=== PATIENT | female | born 1975 | race Two or more races ===

== ENCOUNTER 2016-10-04 15:01 | Emergency (ER) | payer MEDICAID ==
[~2016-10-04] VITALS: Ht 152.4 cm; Wt 72.6 kg
[~2016-10-04 15:01] MED LIST: BUSP10TA3 PO; SITA1TAB2 PO
[2016-10-04 15:18] VITALS: BP 135/82
== END 2016-10-04 16:24 | disposition home or self-care (01) ==
LOC: ER 15:03
DX: J01.90 Acute sinusitis, unspecified (principal); J30.2 Other seasonal allergic rhinitis; I10 Essential (primary) hypertension; E11.9 Type 2 diabetes mellitus without complications
CPT/HCPCS: 99283; A4606; Z7610

== ENCOUNTER 2017-04-05 09:37 | Emergency (ER) | payer MEDICAID ==
[~2017-04-05] VITALS: Ht 152.4 cm; Wt 81.6 kg
--- NOTE | 2017-04-05 10:21 | NUR ---
PT REC'D TO ER C/O RIDER FOR 2 DAYS HAS MEDS BUT HASNT WORKED AWAITING EVALUATION BY ER PROVIDER.
[2017-04-05] MEDS ORDERED: OXYMETAZOLINE HCL NASAL SPRAY 30 ML BOTTLE NS ONE ×2 (10:54→11:00)
[2017-04-05] MEDS ORDERED: METOCLOPRAMIDE HCL 10 MG/2 ML VIAL ONE (10:54)
[2017-04-05] MEDS ORDERED: KETOROLAC TROMETHAMINE INJ 30 MG/ML VIAL ONE (10:55)
[2017-04-05] MEDS ORDERED: METOCLOPRAMIDE HCL 10 MG/2 ML VIAL IM ONE (11:00)
[2017-04-05] MEDS ORDERED: KETOROLAC TROMETHAMINE INJ 60 MG/2 ML VIAL IM ONE (11:00)
--- NOTE | 2017-04-05 11:00 | NUR ---
PT GIVEN MEDS PER MD ORDER VSS
--- NOTE | 2017-04-05 11:17 | NUR ---
PT TOLERATED MEDS FEELING BETTER PT. VERBALIZED UNDERSTANDING OF AFTERCARE INSTRUCTIONS.Patient discharged to home in stable condition. Written and verbal after care instructions given. Patient verbalizes understanding of instruction.
[2017-04-05 11:19] VITALS: BP 122/86
== END 2017-04-05 11:20 | disposition home or self-care (01) ==
LOC: ER 09:39
DX: G43.909 Migraine, unspecified, not intractable, without status migrainosus (principal); R09.81 Nasal congestion; E11.9 Type 2 diabetes mellitus without complications; H53.149 Visual discomfort, unspecified
CPT/HCPCS: 96372 ×2; 99284; A4606; J1885; J2765; Z7610

== ENCOUNTER 2018-08-04 11:35 | Emergency (ER) | payer MEDICAID ==
[~2018-08-04] VITALS: Ht 149.9 cm; Wt 68.0 kg
[2018-08-04 12:11] LABS: BASOPHILS # (AUTO) 0.1 /CMM (0.0-0.2); BASOPHILS % (AUTO) 0.9 % (0.0-2.0); HEMATOCRIT 39 % (33-45); HEMOGLOBIN 12.8 g/dL (11.5-14.8); LYMPHOCYTES # (AUTO) 1.4 /CMM (0.8-4.8); LYMPHOCYTES % (AUTO) 23.5 % (20.0-44.0); MEAN CORPUSCULAR HGB CONC 33 g/dl (31.0-36.0); MEAN CORPUSCULAR VOLUME 76 fL (82-100); MONOCYTES # (AUTO) 0.4 /CMM (0.1-1.30); MONOCYTES % (AUTO) 7.4 % (2.0-12.0); NEUTROPHILS # (AUTO) 3.8 /CMM (1.8-8.9); NEUTROPHILS % (AUTO) 64.2 % (43.0-81.0); PLATELET COUNT (AUTO) 214 /CMM (150-450); RED BLOOD CELL COUNT(AUTO) 5.08 MIL/uL (4.0-5.2); WHITE BLOOD COUNT (AUTO) 5.9 K/uL (4.3-11.0)
[2018-08-04 12:18] LABS: CALCIUM, SERUM 9.4 mg/dL (8.5-10.1); CARBON DIOXIDE 25 mmol/L (21-32); CHLORIDE 103 mmol/L (98-107); CREATININE 0.8 mg/dL (0.6-1.3); GLUCOSE 240 mg/dL (74-106); POTASSIUM 3.8 mmol/L (3.5-5.1); SODIUM SERUM 139 mmol/L (136-145); UREA NITROGEN, BLOOD 7 mg/dL (7-18)
[2018-08-04 12:30] LABS: ALANINE AMINOTRANSFERASE 102 U/L (12-78); ALBUMIN 3.8 g/dL (3.4-5.0); ALCOHOL, BLOOD < 3 mg/dL (0-0); ALKALINE PHOSPHATASE 90 U/L (46-116); ASPARTATE AMINOTRANSFERASE 48 U/L (15-37); BILIRUBIN,DIRECT 0.1 mg/dL (0.0-0.2); BILIRUBIN,TOTAL 0.3 mg/dL (0.2-1.0); TOTAL PROTEIN, SERUM 7.1 g/dL (6.4-8.2)
[2018-08-04] MEDS ORDERED: IV NS 0.9% 1,000 ML BAG IV ONE ×2 (12:30→14:30)
[2018-08-04] MEDS ORDERED: KETOROLAC TROMETHAMINE INJ 30 MG/ML VIAL IV ONE (12:30)
[2018-08-04] MEDS ORDERED: METOCLOPRAMIDE HCL 10 MG/2 ML VIAL IV ONE (12:30)
[2018-08-04] MEDS ORDERED: diphenhydrAMINE HCL 50 MG/ML VIAL IV ONE (12:30)
[2018-08-04] MEDS ORDERED: DIAZEPAM 10 MG TABLET PO ONE (12:30)
[2018-08-04 12:33] LABS: ACETAMINOPHEN 0 ug/ml (10-30); SALICYLATE 0.9 mg/dL (2.8-20.0)
[2018-08-04] MEDS ORDERED: diphenhydrAMINE HCL 50 MG/ML VIAL ONE (13:05)
[2018-08-04] MEDS ORDERED: DIAZEPAM 5 MG TABLET ONE (13:06)
[2018-08-04] MEDS ORDERED: KETOROLAC TROMETHAMINE INJ 30 MG/ML VIAL ONE (13:06)
[2018-08-04] MEDS ORDERED: METOCLOPRAMIDE HCL 10 MG/2 ML VIAL ONE (13:06)
[2018-08-04 14:10] LABS: APPEARANCE,URINE Slightly Cloudy (CLEAR); BILIRUBIN,URINE Negative (NEGATIVE); BLOOD, URINE Negative Ery/uL (NEGATIVE); COLOR,URINE Yellow (YELLOW); KETONES,URINE Negative (NEGATIVE); LEUKOCYTE ESTERASE ,URINE Negative (NEGATIVE); NITRITE, URINE Negative (NEGATIVE); PROTEIN,URINE Negative (NEGATIVE); UGLUCOSE Negative (NEGATIVE); UROBILINOGEN,URINE 0.2 EU/dL (0.2)
--- NOTE | 2018-08-04 14:24 | NUR ---
CT CALLED,SPOKE WITH LIAM, ON THE WAY TO BUSINESS RISK ANALYST PT
--- NOTE | 2018-08-04 15:22 | NUR ---
Re-evaluated and updated by ER provider Kenneth EMT interprets. Pt states "Feeling better" NO acute changes no obvious distress
[2018-08-04 16:10] VITALS: BP 140/94
--- NOTE | 2018-08-04 16:11 | NUR ---
FOR DISCHARGE aci GIVEN - REITERATED THROUGH COMPRESSED GASES TESTER Allie. vERBALIZED UNDERSTANDING dc HOME AMBULATORY STABLE
== END 2018-08-04 16:11 | disposition home or self-care (01) ==
LOC: ER 11:39
DX: R51 Headache (principal); F41.9 Anxiety disorder, unspecified; E86.0 Dehydration; R11.2 Nausea with vomiting, unspecified; R74.0 Nonspecific elevation of levels of transaminase and lactic acid dehydrogenase [LDH]; E11.65 Type 2 diabetes mellitus with hyperglycemia; R71.8 Other abnormality of red blood cells; I10 Essential (primary) hypertension; F32.9 Major depressive disorder, single episode, unspecified; F13.10 Sedative, hypnotic or anxiolytic abuse, uncomplicated
CPT/HCPCS: 36415; 70450; 80048; 80076; 80305; 80329; 81001; 82962; 84703; 85025; 96361; 96374; 96375; 99284; A4606; G0480 ×2; J1200; J1885; J2765; J7030; Z7610; 81000-TC

== ENCOUNTER 2023-05-02 15:28 | Emergency (ER) | payer MEDICAID ==
[~2023-05-02] VITALS: Ht 152.4 cm; Wt 67.1 kg
[2023-05-02] MEDS ORDERED: METOCLOPRAMIDE HCL 10 MG/2 ML VIAL IV ONE (18:00)
[2023-05-02] MEDS ORDERED: KETOROLAC TROMETHAMINE INJ 30 MG/ML VIAL IV ONE (18:00)
[2023-05-02] MEDS ORDERED: diphenhydrAMINE HCL 50 MG/ML VIAL IV ONE (18:00)
[2023-05-02] MEDS ORDERED: IV NS 0.9% 500 ML BAG IV ONE (18:00)
[2023-05-02] MEDS ORDERED: METOCLOPRAMIDE HCL 10 MG/2 ML VIAL ONE (18:07)
[2023-05-02] MEDS ORDERED: KETOROLAC TROMETHAMINE INJ 30 MG/ML VIAL ONE (18:07)
[2023-05-02] MEDS ORDERED: diphenhydrAMINE HCL 50 MG/ML VIAL ONE (18:07)
[2023-05-02] MEDS ORDERED: ASPI-966 PO (19:47)
[2023-05-02 19:59] VITALS: BP 130/79; TEMP 98.3; O2SAT 97
== END 2023-05-02 20:00 | disposition home or self-care (01) ==
LOC: ER 15:41
DX: R51.9 Headache, unspecified (principal); I10 Essential (primary) hypertension; E11.8 Type 2 diabetes mellitus with unspecified complications; F32.A Depression, unspecified; Z79.4 Long term (current) use of insulin
CPT/HCPCS: 99284; 96374; 96375; 96361; J1200; J2765; J1885; J7030

== ENCOUNTER 2023-12-05 07:11 | Emergency (ER) | payer MEDICAID ==
[~2023-12-05] VITALS: Ht 152.4 cm; Wt 85.7 kg
[~2023-12-05 07:11] MED LIST changes: +ASPI-966 PO
[2023-12-05] MEDS: METOCLOPRAMIDE HCL 10 MG TABLET PO ONE (08:00)
[2023-12-05] MEDS: KETOROLAC TROMETHAMINE INJ 30 MG/ML VIAL IM ONE (08:00)
[2023-12-05] MEDS: diphenhydrAMINE HCL 25 MG CAPSULE PO ONE (08:00)
[2023-12-05] MEDS ORDERED: METO-295 PO (08:10)
[2023-12-05] MEDS ORDERED: KETOROLAC TROMETHAMINE INJ 30 MG/ML VIAL ONE (08:19)
[2023-12-05] MEDS ORDERED: METOCLOPRAMIDE HCL 10 MG TABLET ONE (08:19)
[2023-12-05] MEDS ORDERED: diphenhydrAMINE HCL 50 MG CAPSULE ONE (08:19)
[2023-12-05 08:38] VITALS: BP 131/69; TEMP 97.9; O2SAT 99
== END 2023-12-05 08:38 | disposition home or self-care (01) ==
LOC: ER 07:18
DX: R51.9 Headache, unspecified (principal); I10 Essential (primary) hypertension; E11.9 Type 2 diabetes mellitus without complications; F41.9 Anxiety disorder, unspecified; F32.A Depression, unspecified; Z79.899 Other long term (current) drug therapy
CPT/HCPCS: 99283; 96372; Q0163; J8597; J1885